=== PATIENT | male | born 1940 | race Caucasian/White ===

== ENCOUNTER 2017-05-21 12:05 | Inpatient (IN) | payer MEDICAID ==
[~2017-05-21] VITALS: Ht 165.1 cm; Wt 67.2 kg
[2017-05-21 12:08] VITALS: Ht 165.1 cm; Wt 67.2 kg
[2017-05-21 12:59] LABS: BASOPHIL % 0.3 % (0-2); PLATELET COUNT 212 x10^3mcL (130-400); RED CELL DISTRIBUTION WIDTH 13.5 % (11.5-14.5)
[2017-05-21 13:01] LABS: CALCIUM 8.3 mg/dL (8.5-10.1); CARBON DIOXIDE 23.4 mmol/L (21-32); CHLORIDE SERUM 107 mmol/L (98-107); CREATININE SERUM 1.1 mg/dL (0.7-1.3); GLUCOSE SERUM 98 mg/dL (74-106); POTASSIUM SERUM 3.8 mmol/L (3.5-5.1); SODIUM SERUM 140 mmol/L (136-145)
[2017-05-21 13:05] LABS: ALBUMIN 3.2 g/dL (3.4-5.0); ALKALINE PHOSPHATASE 64 U/L (46-116); ALT/SGPT 37 U/L (16-63); AST/SGOT 18 U/L (15-37); BILIRUBIN TOTAL 0.4 mg/dL (0.20-1.00); TOTAL PROTEIN, SERUM 6.6 g/dL (6.4-8.2)
[2017-05-21] MEDS ORDERED: FERROUS SULFAT325 M2 PO (14:34)
[2017-05-21] MEDS ORDERED: ASPIRIN325 MG PO (14:35)
[2017-05-21] MEDS ORDERED: ATORVASTATIN CA40 M1 PO (14:36)
[2017-05-21] MEDS ORDERED: LISINOPRIL2.5 MG PO (14:36)
[2017-05-21] MEDS ORDERED: CARVEDILOL6.25 M1 PO (14:36)
[2017-05-21] MEDS ORDERED: TAMSULOSIN HYD0.4 M1 PO (14:49)
[2017-05-21 16:03] VITALS: BP 129/44
[2017-05-21 16:24] LABS: CHOLESTEROL/HDL RATIO 3.5; MAGNESIUM 2.3 mg/dL (1.8-2.4); PHOSPHOROUS 3.2 mg/dL (2.5-4.9)
[2017-05-21 16:29] LABS: T3 TOTAL 1.03 ng/mL
[2017-05-21 17:16] LABS: FREE T4 1.09 ng/dL (0.76-1.46); FREE THYROXINE INDEX 2.3 ug/dL (1.4-4.5); T4(THYROXINE) 6.3 ug/dL (4.7-13.3)
[2017-05-21 19:56] LABS: microscopic required? NO
[2017-05-21 20:13] LABS: UA SPECIFIC GRAVITY 1.025 (1.005-1.035); urine erythrocyte NEGATIVE (NEGATIVE)
[2017-05-21 20:56] LABS: AMPHETAMINE QUAL UR NONE DETECTED (NEG <=1000)
[2017-05-21 21:40] VITALS: BP 127/65
[2017-05-22 06:22] VITALS: BP 113/57
[2017-05-22 08:00] VITALS: BP 144/61
[2017-05-22 08:35] LABS: CARBON DIOXIDE 22.6 mmol/L (21-32); CHLORIDE SERUM 110 mmol/L (98-107); CREATININE SERUM 0.9 mg/dL (0.7-1.3); GLUCOSE SERUM 91 mg/dL (74-106); MAGNESIUM 2.1 mg/dL (1.8-2.4); PHOSPHOROUS 3.2 mg/dL (2.5-4.9); POTASSIUM SERUM 4.1 mmol/L (3.5-5.1); SODIUM SERUM 141 mmol/L (136-145)
[2017-05-22 08:36] LABS: BASOPHIL % 0.3 % (0-2); PLATELET COUNT 188 x10^3mcL (130-400); RED CELL DISTRIBUTION WIDTH 13.7 % (11.5-14.5)
[2017-05-22 13:08] VITALS: BP 112/55
[2017-05-22 17:57] VITALS: BP 124/57
[2017-05-22 22:36] VITALS: BP 135/40
[2017-05-23 07:08] VITALS: BP 125/66
[2017-05-23 07:52] LABS: CALCIUM 8.4 mg/dL (8.5-10.1); CARBON DIOXIDE 22.8 mmol/L (21-32); CHLORIDE SERUM 111 mmol/L (98-107); GLUCOSE SERUM 86 mg/dL (74-106); MAGNESIUM 2.1 mg/dL (1.8-2.4); PHOSPHOROUS 3.4 mg/dL (2.5-4.9); POTASSIUM SERUM 4.3 mmol/L (3.5-5.1); SODIUM SERUM 144 mmol/L (136-145)
[2017-05-23 07:55] LABS: BASOPHIL % 0.1 % (0-2); PLATELET COUNT 189 x10^3mcL (130-400); RED CELL DISTRIBUTION WIDTH 13.9 % (11.5-14.5)
[2017-05-23 08:39] VITALS: BP 127/61
[2017-05-23 10:05] VITALS: BP 136/84
[2017-05-23 12:19] VITALS: BP 136/84
== END 2017-05-23 14:15 | disposition home health service (06) | DRG 422 ==
LOC: ED 12:05 → DU 14:02
PROVIDERS: Emergency Medicine; Family Medicine; Family Medicine Sports Medicine
DX: E86.0 Dehydration (principal); N17.0 Acute kidney failure with tubular necrosis; E44.0 Moderate protein-calorie malnutrition; D50.9 Iron deficiency anemia, unspecified; F17.210 Nicotine dependence, cigarettes, uncomplicated; I10 Essential (primary) hypertension; I69.351 Hemiplegia and hemiparesis following cerebral infarction affecting right dominant side; J98.11 Atelectasis; I25.10 Atherosclerotic heart disease of native coronary artery without angina pectoris; M48.061 Spinal stenosis, lumbar region without neurogenic claudication; N40.0 Benign prostatic hyperplasia without lower urinary tract symptoms; E78.5 Hyperlipidemia, unspecified; Z68.29 Body mass index [BMI] 29.0-29.9, adult; Z95.1 Presence of aortocoronary bypass graft; Z95.5 Presence of coronary angioplasty implant and graft
CPT/HCPCS: 83880; 84439; 97110-GP; 97116-GP; 97530-GP; J3475; J7030; Q0092